=== PATIENT | female | born 1970 | race Caucasian/White ===

== ENCOUNTER 2022-06-11 05:55 | Emergency (ER) | payer OTHER, SELFPAY ==
[2022-06-11] MEDS ORDERED: traMADol HCl 50 MG TAB ONE (06:39)
== END 2022-06-11 08:06 | disposition home or self-care (01) ==
LOC: NAV ERS 05:55
DX: S29.011A Strain of muscle and tendon of front wall of thorax, initial encounter (principal); E03.9 Hypothyroidism, unspecified; E78.5 Hyperlipidemia, unspecified; Z79.899 Other long term (current) drug therapy; W18.30XA Fall on same level, unspecified, initial encounter